=== PATIENT | male | born 1945 | race Caucasian/White ===

== ENCOUNTER 2018-01-19 19:26 | Emergency (ER) | payer OTHER ==
[~2018-01-19] VITALS: Ht 320 cm; Wt 53.5 kg
[2018-01-19] MEDS ORDERED: PRILOSEC10 MG PO (19:48)
[2018-01-19] MEDS ORDERED: CARDIZEM CD180 MG PO (19:49)
[2018-01-19 20:46] VITALS: BP 113/65
== END 2018-01-19 20:46 | disposition home or self-care (01) ==
LOC: M.ERS 19:26
DX: S43.084A Other dislocation of right shoulder joint, initial encounter (principal); X58.XXXA Exposure to other specified factors, initial encounter; Y93.89 Activity, other specified; Y92.89 Other specified places as the place of occurrence of the external cause; Y99.8 Other external cause status

== ENCOUNTER 2018-07-30 06:48 | Emergency (ER) | payer OTHER ==
[~2018-07-30] VITALS: Ht 175.3 cm; Wt 57.1 kg
[~2018-07-30 06:48] MED LIST: CARDIZEM CD180 MG PO; PRILOSEC10 MG PO
[2018-07-30] MEDS ORDERED: [UNRECOGNIZED DRUG - REMARK] (07:01)
[2018-07-30] MEDS ORDERED: HYDROCODONE-AP1 EAC6 PO (07:50)
[2018-07-30 08:15] VITALS: BP 122/79
== END 2018-07-30 08:15 | disposition home or self-care (01) ==
LOC: M.ERS 06:48
DX: S43.084A Other dislocation of right shoulder joint, initial encounter (principal); Z85.01 Personal history of malignant neoplasm of esophagus; X58.XXXA Exposure to other specified factors, initial encounter; Y93.89 Activity, other specified; Y92.89 Other specified places as the place of occurrence of the external cause; Y99.8 Other external cause status